=== PATIENT | female | born 1945 | race Caucasian/White ===

== ENCOUNTER 2023-09-12 08:28 | Outpatient (OUT) | payer MEDICARE, SELFPAY ==
[2023-09-12 08:55] LABS: Basophils Absolute Auto 0.1 10^3/uL (0.0-0.1); Basophils Percent Auto 1.1 % (0.2-2.0); Eosinophils Absolute Auto 0.1 10^3/uL (0.0-0.7); Eosinophils Percent Auto 2.6 % (0.9-7.0); Hematocrit 39.8 % (36.0-48.0); Lymphocytes Absolute Auto 1.3 10^3/uL (1.2-3.8); Lymphocytes Percent Auto 27.9 % (20.5-60.0); Mean Corpuscular HGB Conc 32.7 g/dL (29.9-35.2); Mean Corpuscular Hemoglobin 30.5 pg (26.7-34.0); Mean Corpuscular Volume 93.4 fL (81.0-99.0); Mean Platelet Volume 10.9 fL (9.5-13.5); Monocytes Absolute Auto 0.4 10^3/uL (0.3-0.8); Monocytes Percent Auto 8.6 % (1.7-12.0); Neutrophils Absolute Auto 2.8 10^3/uL (1.4-6.5); Neutrophils Percent Auto 59.8 % (43.0-75.0); Platelet Count 176 10^3/uL (150-450); Red Blood Count 4.26 10^6/uL (4.20-5.40); Red Cell Distribution Width 13.7 % (11.0-15.0); White Blood Count 4.7 10^3/uL (4.0-11.0)
[2023-09-12 10:41] LABS: Estimated Average Glucose 111 mg/dL; Glycohemoglobin A1C 5.5 % (4.5-6.2)
[2023-09-12 10:47] LABS: Free T4 0.99 ng/dL (0.76-1.46)
[2023-09-12 12:50] LABS: Alanine Aminotransferase 20 U/L (14-59); Albumin Level 3.9 g/dL (3.4-5.0); Alkaline Phosphatase 58 U/L (46-116); Anion Gap 14.6; Aspartate Amino Transferase 23 U/L (15-37); BUN Creatinine Ratio 14.5; Bilirubin Direct 0.1 mg/dL (0.0-0.2); Bilirubin Total 0.8 mg/dL (0.2-1.0); Carbon Dioxide 25.3 mmol/L (21.0-32.0); Chloride 105 mmol/L (98-107); Estimated GFR (African America >60 (>=60); Estimated GFR (Non-African Ame >60 (>=60); Free T3 2.65 pg/mL (2.18-3.98); Glucose 96 mg/dL (74-106); Potassium 3.9 mmol/L (3.5-5.1); Sodium 141 mmol/L (136-145); Total Protein 7.9 g/dL (6.4-8.2)
== END 2023-09-12 08:29 | disposition home or self-care (01) ==
LOC: LAB 08:32
PROVIDERS: PCP Family Medicine; Visit Provider Family Medicine
DX: Z79.899 Other long term (current) drug therapy (principal); R79.89 Other specified abnormal findings of blood chemistry; R73.03 Prediabetes
CPT/HCPCS: 36415; 80048; 80076; 83036; 84439; 84443; 84481; 85025

== ENCOUNTER 2024-09-17 08:28 | Outpatient (OUT) | payer MEDICARE, SELFPAY ==
--- OUTSIDE RECORDS SUMMARY | 2024-09-17 08:49 | XMS_ITS | CCD ---
Author Organization [facility] Care Team Providers Care [employer]ating [employer]or Name Role Phone Jb Escudero Unavailable DR NOELLE MONTERO Admitting Unavailable WINSTON, DR NOELLE Kevin Attending Unavailable WINSTON, DR NOELLE Kevin Primary Care Unavailable WINSTON, DR NOELLE Kevin Admitting Unavailable WINSTON, DR NOELLE Kevin Attending Unavailable WINSTON, DR NOELLE Kevin Primary Care Unavailable WINSTON, DR NOELLE Kevin Consulting Unavailable Noelle Montero MD Primary Care Provider [phone] Allergies Allergy Classification Reported Allergen(s) Allergy Type Date of Onset Reaction(s) Facility (4 sources) Sulf-10 Drug allergy Unknown [facility] Other (2 sources) Sulfonamides (Antibiotic) Drug allergy (disorder) 6 [facility] (3 sources) Sulfonamides (Antibiotic) Propensity to adverse reactions 4 [facility] Healthcare Medications Current Medications Medication Drug Class(es) Dates Sig (Normalized) Sig (Original) acetaminophen 325 mg / HYDROcodone bitartrate 5 mg oral tablet (4 sources) Opioid Agonist take 1 tablet by mouth every six hours HYDROcodone-Acetam inophen 5-325 MG 1 tablet as needed Orally every 6 hrs Active Iron (4 sources) Iron Active lisinopril 20 mg oral tablet (7 sources) Angiotensin Converting Enzyme Inhibitor Start: 07-29-2024 take 1 tablet by mouth once daily lisinopril 20 MG tablet Indications: Essential (primary) hypertension (CMS/HCC) TAKE 1 TABLET BY MOUTH DAILY 90 tablet 3 07/29/2024 Active take 1 tablet by fercho th every twenty-four hours Lisinopril 20 MG 1 tablet Orally Once a day Active Multivitamins (4 sources) Multivitamins Ac tive nitrofurantoin, macrocrystals 25 mg / nitrofurantoin, monohydrate 75 mg oral capsule (4 sources) Nitrofuran Antibacterial Start: 02-28-20 16 take 1 capsule by mouth every twelve hours Macrobid 100 mg 1 capsule with food Orally every 12 hrs for 7 day(s) February, Active Completed/Discontinued Medications Medication Drug Class(es) Dates Sig (Normalized) Sig (Original) cefuroxime 500 mg oral tablet (4 sources) Cephalosporin Antibacterial Start: 01-14-2015 take 1 tablet by mouth twice daily Ceftin 500 mg 1 tablet Orally Twice a day for 10 day(s) Jan, Not-Taking codeine phosphate 2 mg/ml / guaiFENesin 20 mg/ml oral solution (4 sources) Opioid Agonist Start: 01-14-2015 take 10 mL by mouth every four to six hours as needed guaiFENesin AC 100-10 MG/5ML 10 ml as needed Orally every 4-6 hrs Jan, Not-Taking Problems Active Problems Problem Classification Problem Date Documented Da te Episodic/Chronic Diabetes mellitus without complication (5 sources) Prediabetes; Translations: [Prediabetes] Onset: 03-13-2024 03-13-2024 Episodic Disorders of lipid metabolism (6 sources) Hyperlipidemia, unspecified; Translations: [Dyslipidemia] Onset: 02-16-2023 03-13-2024 Chronic Essential hypertension (9 sources) Essential (primary) hypertension; Translations: [Benign essential hypertension] Onset: 02-12-2023 Chronic Other aftercare (1 source) Other jail (current) drug therapy; Translations: [OTH GLOBAL CTO CURRENT DRUG THERAPY] Onset: 02-16-2023 Episodic Other aftercare (4 sources) Long-term current use of drug therapy; Translations: [Other jail (current) drug therapy] Onset: 09-16-2024 09-16-2024 Episodic Other screening for suspected conditions (not mental disorders or infectious disease) (4 sources) Thyroid hormone tests abnormal; Translations: [Other specified abnormal findings of blood chemistry] Onset: 09-16-2024 09-16-2024 Episodic Other upper respiratory disease (5 sources) Allergic rhinitis due to pollen; Translations: [Allergic rhinitis due to pollen] Onset: 03-13-2024 03-13-2024 Chronic Thyroid disorders (5 sources) Thyroid nodule; Translations: [Nontoxic single thyroid nodule] Onset: 03-13-2024 03-13-2024 Chronic Past or Other Problems Problem Classification Problem Date Documented Date Episodic/Chronic Cancer of breast (3 sources) History of malignant neoplasm of breast; Translations: [Personal history of malignant neoplasm of breast] Onset: 03-13-2024 03-13-2024 Episodic Fracture of upper limb (4 sources) Other fracture of shaft of right humerus, initial encounter for closed fracture; Translations: [Other fracture of shaft of right humerus, subsequent encounter for fracture with routine healing] Onset: 10-04-2021 Resolved: 01-10-2022 Episodic Other connective tissue disease (4 sources) Weakness of face muscles; Translations: [Facial weakness] Episodic Other upper respiratory infections (4 sources) Streptococcal sore throat; Translations: [Strep pharyngitis] Episodic Results Test Name Value Interpretation Reference Range Facil ity CBC AUTO DIFFon 02-12-2023 BASO # 0.1 103/ul Normal 0.0-0.1 [facility] Comment on above: Performed By: #### C BC #### [facility] [address] [place] [address] Dr. Didier Ty Basophils/100 WBC (Bld) 1.0 % Normal 0.2-2.0 [facility] Comment on above: Performed By: #### C BC #### [facility] [address] [place] [address] Dr. Didier Ty EO # 0.2 103/ul Normal 0.0-0.7 [facility] Comment on above: Performed By: #### C BC #### [facility] [address] [place] [address] Dr. Didier Ty Eosinophils/100 WBC (Bld) 3.5 % Normal 0.9-7.0 [facility] Comment on above: Performed By: #### C BC #### [facility] [address] [place] [address] Dr. Didier Ty Erythrocyte distribution width (RBC) [Ratio] 13.0 % Normal 11.0-15.0 [facility] Comment on above: Performed By: #### C BC #### [facility] [address] [place] [address] Dr. Didier Ty Hematocrit (Bld) [Volume fraction] 41.2 % Normal 36.0-48.0 [facility] Comment on above: Performed By: #### C BC #### [facility] [address] [place] [address] Dr. Didier Ty Hemoglobin (Bld) [Mass/Vol] 13.3 g/dL Normal 12.0-16.0 [facility] Comment on above: Performed By: #### C BC #### [facility] [address] [place] [address] Dr. Didier Ty IG # 0.01 10e3/ul Normal 0.00-0.03 [facility] Comment on above: Performed By: #### C BC #### [facility] [address] [place] [address] Dr. Didier Ty IG % 0.2 % Normal 0.0-0.5 [facility] Comment on above: Performed By: #### C BC #### [facility] [address] [place] [address] Dr. Didier Ty LYMPH # 1.4 103/ul Normal 1.2-3.8 [facility] Comment on above: Performed By: #### C BC #### [facility] [address] [place] [address] Dr. Didier Ty Lymphocytes/100 WBC (Bld) 27.3 % Normal 20.5-60.0 [facility] Comment on above: Performed By: #### C BC #### [facility] [address] [place] [address] Dr. Didier Ty MANUAL DIFF REQ NO Normal [facility] Comment on above: Performed By: #### C BC #### [facility] [address] [place] [address] Dr. Didier Ty MCH (RBC) [Entitic mass] 29.6 pg Normal 26.7-34.0 [facility] Comment on above: Performed By: #### C BC #### [facility] [address] [place] [address] Dr. Didier Ty MCHC (RBC) [Mass/Vol] 32.3 g/dL Normal 29.9-35.2 [facility] Comment on above: Performed By: #### C BC #### [facility] [address] [address] [address] Didier Ty MCV (RBC) [Entitic vol] 91.8 fL Normal 81.0-99.0 [facility] Comment on above: Performed By: #### C BC #### [facility] [address] [address] [address] Didier Ty MONO # 0.4 103/ul Normal 0.3-0.8 [facility] Comment on above: Performed By: #### C BC #### [facility] [address] [address] [address] Didier Ty Monocytes/100 WBC (Bld) 7.8 % Normal 1.7-12.0 [facility] Comment on above: Performed By: #### C BC #### [facility] [address] [place] [address] Dr. Didier Ty NEUT # 3.1 103/ul Normal 1.4-6.5 [facility] Comment on above: Performed By: #### C BC #### [facility] [address] [place] [address] Dr. Didier Ty Neutrophils/100 WBC (Bld) 60.2 % Normal 43.0-75.0 [facility] Comment on above: Performed By: #### C BC #### [facility] [address] [place] [address] Dr. Didier Ty Platelet mean volume (Bld) [Entitic vol] 10.5 fL Normal 9.5-13.5 [facility] Comment on above: Performed By: #### C BC #### [facility] [address] [address] [address] Didier Ty PLT 195 103/ul Normal 150-450 [facility] Comment on above: Performed By: #### C BC #### [facility] [address] [address] [address] Didier Ty RBC 4.49 106/ul Normal 4.20-5.40 [facility] Comment on above: Performed By: #### C BC #### [facility] [address] [address] [address] Didier Ty WBC 5.1 103/ul Normal 4.0-11.0 [facility] Comment on above: Performed By: #### C BC #### [facility] [address] [address] [address] Didier Ty LIPID PROFILEon 02-12-2023 CHOL-HDL RATIO NORM SEE BELOW Normal [facility] Comment on above: Result Comment: 3.3 - 4.4 LOW RISK 4.4 - 7.1 AVERAGE RISK 7.1 - 11.0 MODERATE RISK >11.0 HIGH RISK Performed By: #### L IPID, LIVER, BMP #### [facility] [address] [place] [address] Dr. Didier Ty Cholesterol [Mass/Vol] 235 mg/dL Critically high <=200 [facility] Comment on above: Performed By: #### L IPID, LIVER, BMP #### [facility] [address] [address] [address] Didier Ty Cholesterol in HDL [Mass/Vol] 54 mg/dL Normal 40-60 [facility] Comment on above: Performed By: #### L IPID, LIVER, BMP #### [facility] [address] [address] [address] Didier Ty Cholesterol in LDL [Mass/Vol] 162.2 mg/dL Normal [facility] Comment on above: Performed By: #### L IPID, LIVER, BMP #### [facility] [address] [address] [address] Didier Ty Cholesterol.total/C holesterol in HDL [Mass ratio] 4.4 {ratio} Normal [facility] Comment on above: Performed By: #### L IPID, LIVER, BMP #### [facility] [address] [place] [address] Dr. Didier Ty HDL NORMAL > or = 60 mg/dl - LOW CARDIOVASCULAR RISK <40 mg/dl - HIGH CARDIOVASCULAR RISK Normal [facility] Comment on above: Performed By: #### L IPID, LIVER, BMP #### [facility] [address] [address] [address] Didier Ty LDL CALC NORMAL SEE BELOW Normal [facility] Comment on above: Result Comment: <100 mg/dl OPTIMAL 100 - 129 mg/dl NEAR OR ABOVE OPTIMAL 130 - 159 mg/dl BORDERLINE HIGH 160 - 189 mg/dl HIGH >190 mg/dl VERY HIGH Performed By: #### L IPID, LIVER, BMP #### [facility] [address] [address] [address] Didier Ty Triglyceride [Mass/Vol] 94 mg/dL Normal <=150 [facility] Comment on above: Performed By: #### L IPID, LIVER, BMP #### [facility] [address] [address] [address] Didier Ty VLDL CALC 18.8 mg/dL Normal [facility] Comment on above: Performed By: #### L IPID, LIVER, BMP #### [facility] [address] [place] [address] Dr. Didier Ty LIVER PROFILEon 02-12-2023 Albumin [Mass/Vol] 3.6 g/dL Normal 3.4-5.0 [facility] Comment on above: Performed By: #### L IPID, LIVER, BMP #### [facility] [address] [place] [address] Dr. Didier Ty Albumin/Globulin [Mass ratio] 0.8 {ratio} Normal [facility] Comment on above: Performed By: #### L IPID, LIVER, BMP #### [facility] [address] [address] [address] Didier Ty ALP [Catalytic activity/Vol] 60 U/L Normal 46-116 [facility] Comment on above: Performed By: #### L IPID, LIVER, BMP #### [facility] [address] [address] [address] Didier Ty ALT [Catalytic activity/Vol] 25 U/L Normal 14-59 [facility] Comment on above: Performed By: #### L IPID, LIVER, BMP #### [facility] [address] [address] [address] Didier Ty AST [Catalytic activity/Vol] 19 U/L Normal 15-37 [facility] Comment on above: Performed By: #### L IPID, LIVER, BMP #### [facility] [address] [place] [address] Dr. Didier Ty BILI, CONJUGATED 0.1 mg/dL Normal 0.0-0.2 [facility] Comment on above: Performed By: #### L IPID, LIVER, BMP #### [facility] [address] [place] [address] Dr. Didier Ty Bilirubin [Mass/Vol] 0.6 mg/dL Normal 0.2-1.0 [facility] Comment on above: Performed By: #### L IPID, LIVER, BMP #### [facility] [address] [place] [address] Dr. Didier Ty Globulin (S) [Mass/Vol] 4.3 g/dL Normal [facility] Comment on above: Performed By: #### L IPID, LIVER, BMP #### [facility] [address] [place] [address] Dr. Didier Ty Protein [Mass/Vol] 7.9 g/dL Normal 6.4-8.2 [facility] Comment on above: Performed By: #### L IPID, LIVER, BMP #### [facility] [address] [place] [address] Dr. Didier Ty PROF CHEM 8 (BAS METB)on Anion gap [Moles/Vol] 13.3 mmol/L Normal [facility] Comment on above: Performed By: #### L IPID, LIVER, BMP #### [facility] [address] [place] [address] Dr. Didier Ty Calcium [Mass/Vol] 9.1 mg/dL Normal 8.5-10.1 [facility] Comment on above: Performed By: #### L IPID, LIVER, BMP #### [facility] [address] [place] [address] Dr. Didier Ty Chloride [Moles/Vol] 105 mmol/L Normal 98-107 [facility] Comment on above: Performed By: #### L IPID, LIVER, BMP #### [facility] [address] [address] [address] Didier Ty CO2 [Moles/Vol] 26.6 mmol/L Normal 21.0-32.0 [facility] Comment on above: Performed By: #### L IPID, LIVER, BMP #### [facility] [address] [address] [address] Didier Ty Creatinine [Mass/Vol] 0.74 mg/dL Normal 0.55-1.02 [facility] Comment on above: Performed By: #### L IPID, LIVER, BMP #### [facility] [address] [address] [address] Didier Ty EGFR-AF WALLISIAN >60 Normal >=60 [facility] Comment on above: Performed By: #### L IPID, LIVER, BMP #### [facility] [address] [address] [address] Didier Ty EGFR-NON AF WALLISIAN >60 Normal >=60 [facility] Comment on above: Performed By: #### L IPID, LIVER, BMP #### [facility] [address] [address] [address] Didier Ty Glucose [Mass/Vol] 107 mg/dL Critically high 74-106 [facility] Comment on above: Performed By: #### L IPID, LIVER, BMP #### [facility] [address] [address] [address] Didier Ty Potassium [Moles/Vol] 3.9 mmol/L Normal 3.5-5.1 [facility] Comment on above: Performed By: #### L IPID, LIVER, BMP #### [facility] [address] [address] [address] Didier Ty Sodium [Moles/Vol] 141 mmol/L Normal 136-145 [facility] Comment on above: Performed By: #### L IPID, LIVER, BMP #### [facility] [address] [address] [address] Didier Ty Urea nitrogen [Mass/Vol] 15.0 mg/dL Normal 7.0-18.0 [facility] Comment on above: Performed By: #### L IPID, LIVER, BMP #### [facility] [address] [address] [address] Didier Ty Urea nitrogen/Creatinine [Mass ratio] 20.3 mg/mg Normal [facility] Comment on above: Performed By: #### L IPID, LIVER, BMP #### [facility] [id number] Didier Ty XR humerus RT*on 10-11-2021 XR humerus RT* [facility] [address] [place] [address] XRay Report Signed Patient: Meeta Funez MR#: [id number] 0 : 1945 Acct:[id number] Age/Sex: 76 / F ADM Date: 10/11/21 Loc: [facility] Room: Type: [facility] Attending Dr: Jb Escudero MD Ordering Provider: Jb Escudero MD Date of Service: 10/11/21 XR/XR humerus RT*: Other fracture of shaft of right humerus, subsequent encount Copies to: Jb Escudero MD 2 viewsRIGHT humerus plain film COMPARISON:None HISTORY:Status post RIGHT humeral shaft fracture Comminuted angulated proximal humeral shaft fracture identified. No dislocation. XR/XR humerus RT* IMPRESSION:Proximal humerus fracture. Impression dictated by: Isaias Gardner M.D.10/11/2021 12:47 PM Dictation Location: [place] [address] Transcribed By: [facility] 10/11/21 1247 Dictated By: Isaias Gardner DO 10/11/21 1240 Signed By: 10/11/[address] [facility] Vital Signs Date Time Vital Sign Value Performing Clinician Facility 09-16-2024 [id number] Body height 165.1 cm Noelle Montero MD Work Phone: [facility] 09-16-2024 09:28-0500 Body mass index (BMI) [Ratio] 25.29 kg/m2 Noelle Montero MD Work Phone: [facility] 09-16-2024 09:28-0500 Body temperature 97.5 [degF] Noelle Montero MD Work Phone: [facility] 09-16-2024 09:28-0500 Body weight 68.95 kg Noelle Montero MD Work Phone: [facility] 09-16-2024 09:28-0500 Diastolic blood pressure 60 mm[Hg] Noelle Montero MD Work Phone: [facility] 09-16-2024 09:28-0500 Heart rate 77 /min Noelle Montero MD Work Phone: [facility] 09-16-2024 09:28-0500 Respiratory rate 20 /min Noelle Montero MD Work Phone: [facility] 09-16-2024 09:28-0500 SaO2% (BldA) [Mass fraction] 98 % Noelle Montero MD Work Phone: [facility] 09-16-2024 09:28-0500 Systolic blood pressure 134 mm[Hg] Noelle Montero MD Work Phone: [facility] 10-11-2021 10:30-0500 Body height 165.1 cm Jb Olexa Other [facility] Other 10-11-2021 10:30-0500 Body mass index (BMI) [Ratio] 25.46 kg/m2 Jb Olexa Other [facility] Other 10-11-2021 10:30-0500 Body weight 69.4 kg Jb Olexa Other [facility] Other 10-04-2021 14:00-0500 Body height 165.1 cm Jb Olexa Other [facility] Other 10-04-2021 14:00-0500 Body mass index (BMI) [Ratio] 25.62 kg/m2 Jb Olexa Other [facility] Other 10-04-2021 14:00-0500 Body weight 69.85 kg Jb Olexa Other [facility] Other Encounters Encounter Date Encounter Type Care Provider Facility Start: 09-16-2024 End: 09-16-2024 Bambocedric flowsheet Noelle Montero MD Work Phone: [facility] Start: 09-16-2024 End: 09-16-2024 Bamboo flowsheet Noelle Montero MD Work Phone: [facility] Start: 09-16-2024 End: 09-16-2024 Office outpatient visit 25 minutes Noelle Montero MD Work Phone: [facility] Comment on above: Essential hypertensi on, benign (CMS/HCC) (Primary Dx); Dyslipidemia (CMS/HCC); Pre-diabetes; Seasonal allergic rhinitis due to pollen; Encounter for long-term (current) use of medications; Abnormal TSH; Thyroid nodule (CMS/HCC) Start: 02-12-2023 End: 02-13-[address] NOELLE MONTERO Facility:[facility] Start: 12-14-[address] NOELLE MONTERO [facility] ity:[facility] Start: 01-10-2022 End: 01-10-2022 ambulatory Jb Olexa Other [facility] Other Start: 01-10-2022 Office outpatient vi sit 15 minutes Jb Olexa [facility] Start: 11-15-2021 End: 11-15-2021 ambulatory Jb Olexa Other [facility] Other Start: 11-15-2021 Postop follow up vis it related to original px Jb Olexa [facility] Start: 10-11-2021 End: 10-11-2021 ambulatory Jb Olexa Other [facility] Other Start: 10-11-2021 Postop follow up vis it related to original px Jb Escudero [facility] Start: 10-04-2021 End: 10-04-2021 ambulatory Jb Escudero Other [facility] Other Start: 10-04-2021 FQ visit new patient Jb Escudero [facility] Plan of Treatment Date Care Activity Detail Author Start: 12-15-2024 End: 12-15-2024 Patient encounter procedure 12/15/2024 11:00 AM EST Office Visit [facility] [address] [place] [id number] Noelle Montero MD [address] [place] [phone] [facility] Start: 09-16-2024 End: 09-16-2025 Basic metabolic 1998 panel - Serum or Plasma Basic metabolic panel Lab Routine Essential hypertension, benign (CMS/HCC) Expected: 09/16/2024 (Approximate), Expires: 09/16/2025 [facility] Comment on above: Expected: 09/16/2024 (Approximate), Expires: 09/16/2025 Start: 09-16-2024 End: 09-16-2025 CBC W Auto Differential panel - Blood CBC and differential Lab Routine Encounter for long-term (current) use of medications Expected: 09/16/2024 (Approximate), Expires: 09/16/2025 [facility] Comment on above: Expected: 09/16/2024 (Approximate), Expires: 09/16/2025 Start: 09-16-2024 End: 09-16-2025 Hemoglobin A1c/Hemoglobin.total in Blood Hemoglobin A1c Lab Routine Pre-diabetes Expected: 09/16/2024 (Approximate), Expires: 09/16/2025 [facility] Work Phone: Comment on above: Expected: 09/16/2024 (Approximate), Expires: 09/16/2025 Start: 09-16-2024 End: 09-16-2025 Hepatic function 2000 panel - Serum or Plasma Hepatic function panel Lab Routine Encounter for long-term (current) use of medications Expected: 09/16/2024 (Approximate), Expires: 09/16/2025 [facility] Comment on above: Expected: 09/16/2024 (Approximate), Expires: 09/16/2025 Start: 09-16-2024 End: 09-16-2025 Lipid 1996 panel - Serum or Plasma Lipid panel Lab Routine Dyslipidemia (CMS/HCC) Expected: 09/16/2024 (Approximate), Expires: 09/16/2025 [facility] Comment on above: Expected: 09/16/2024 (Approximate), Expires: 09/16/2025 Start: 09-16-2024 End: 09-16-2025 Thyrotropin [Units/volume] in Serum or Plasma TSH Lab Routine Abnormal TSH Expected: 09/16/2024 (Approximate), Expires: 09/16/2025 [facility] Comment on above: Expected: 09/16/2024 (Approximate), Expires: 09/16/2025 Start: 09-16-2024 End: 09-16-2025 Thyroxine (T4) free [Mass/volume] in Serum or Plasma T4, free Lab Routine Abnormal TSH Expected: 09/16/2024 (Approximate), Expires: 09/16/2025 [facility] Comment on above: Expected: 09/16/2024 (Approximate), Expires: 09/16/2025 Start: 09-16-2024 End: 09-16-2025 US Thyroid gland US thyroid Imaging Routine Thyroid nodule (CMS/HCC) Expected: 09/16/2024, Expires: 09/16/2025 [facility] Comment on above: Expected: 09/16/2024 , Expires: 09/16/2025 Start: 09-16-2024 End: 09-16-2024 Patient encounter procedure 09/16/2024 9:15 AM EST Office Visit [facility] [address] [place] [address] Noelle Montero MD [address] [place] [address] Arrived [facility] Comment on above: Arrived Start: 06-15-2024 Influenza vaccination Influenza Vacc ine (#1) [facility] Start: 2008 Pneumococcal Vaccine : 65+ Years (1 of 1 - PCV) Pneumococcal Vaccine: 65+ Years (1 of 1 - PCV) [facility] Start: 1945 Medicare Annual Wellness (AWV) Medicare Annual Wellness (AWV) [facility] Immunizations Immunization Date Immunization Notes Care Provider Fa nirmal 07-29-2024 influenza virus vacc ine, unspecified formulation Noelle Montero MD Work Phone: [facility] Payers Date Payer Category Payer Medicare (Managed Care) [facility] MED[facility] [id number] 1961 Medicare [id number] 1961 Self-pay 1945 Unknown [id number] 1945 Unknown [id number] Medicare [id number] Unknown [id number] Social History Date Type Detail Facility Start: 03-13-2024 End: 09-16-2024 Sex Assigned At [facility] Other Start: 03-13-2024 Tobacco smoking status NHIS Never smoked tobacco [facility] Start: 03-13-2024 Tobacco use and exposure Smokeless tobacco non-user [facility] Start: 03-13-2024 End: 09-16-2024 History of Social function [facility] Start: 1945 Sex assigned at Not on file N [facility] History of Present illness Narrative 09-16-2024 Noelle Montero MD - 09/16/2024 10:03 AM Adriano Montero MD - 09/16/2024 10:03 AM Adriano Montero MD - 09/16/2024 10:03 AM Adriano Montero MD - 09/16/2024 10:03 AM EST Note Date & Type Note Facility 09-16-2024 History of Presen t illness Narrative Associated Problem(s): Thyroid nodule (CMS/HCC) Repeat US. Associated Problem(s): Seasonal allergic rhinitis due to pollen Symptoms controlled with medication and continue. Associated Problem(s): Essential hypertension, benign (CMS/HCC) BP controlled and monitor PRN. Associated Problem(s): Abnormal TSH No signs of abnormal thyroid and check labs. Images from the original note were not included. Subjective Patient ID: Meeta Funez is a 79 y.o. female who presents for Follow-up (6 m). Follow up HTN, allergies, and thyroid nodule. Patient feels well today. Checking BP PRN and typically controlled. BP normal today. Taking medication daily and tolerating without side effects. Allergies controlled with medication. No congestion or rhinorrhea. No PALMER or sinus pressure. Ears not plugged or popping. Previously to endo for nodule but not for years. No labs or US for over a year. Denies signs of low thyroid such as fatigue, change in nails, or skin. Review of Systems Respiratory: Negative for cough, shortness of breath and wheezing. Cardiovascular: Negative for chest pain and palpitations. Gastrointestinal: Negative for abdominal pain, diarrhea, nausea and vomiting. Genitourinary: Negative for dysuria. Objective Physical Exam Constitutional: General: She is not in acute distress. Appearance: Normal appearance. HENT: Head: Normocephalic. Right Ear: Tympanic membrane normal. Left Ear: Tympanic membrane normal. Eyes: Extraocular Movements: Extraocular movements intact. Pupils: Pupils are equal, round, and reactive to light. Cardiovascular: Rate and Rhythm: Normal rate and regular rhythm. Heart sounds: No murmur heard. No friction rub. No gallop. Pulmonary: Effort: Pulmonary effort is normal. Breath sounds: Normal breath sounds. No wheezing, rhonchi or rales. Abdominal: General: Bowel sounds are normal. There is no distension. Palpations: Abdomen is soft. Tenderness: There is no abdominal tenderness. There is no guarding or rebound. Musculoskeletal: Cervical back: Neck supple. Right lower leg: No edema. Left lower leg: No edema. Neurological: Mental Status: She is alert. Assessment/Plan Problem List Items Addressed This Visit Essential hypertension, benign (CMS/HCC) - Primary BP controlled and monitor PRN. Relevant Orders Basic metabolic panel Seasonal allergic rhinitis due to pollen Symptoms controlled with medication and continue. Dyslipidemia (CMS/HCC) Relevant Orders Lipid panel Pre-diabetes Relevant Orders Hemoglobin A1c Thyroid nodule (CMS/HCC) Repeat US. Relevant Orders US thyroid Abnormal TSH No signs of abnormal thyroid and check labs. Relevant Orders TSH T4, free Encounter for long-term (current) use of medications Relevant Orders CBC and differential Hepatic function panel documented in this encounter [facility] Evaluation note 01-10-2022 Note Date & Type Note Facility 01-10-2022 Evaluation note Encounter Date Diagnosis Assessment Notes Dec, Other fracture of shaft of right humerus, subsequent encounter for fracture with routine healing (ICD-10 - S42.391D) Radiographs reviewed with patient. She is progressing well from injury. Instructed on gentle motion and strengthening exercises jail. 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 Progress activity as tolerated. Call with questions/concer ns. [facility] Other Evaluation note 11-15-2021 Note Date & Type Note Facility 11-15-2021 Evaluation note Encounter Date Diagnosis Assessment Notes Nov, Other fracture of shaft of right humerus, subsequent encounter for fracture with routine healing (ICD-10 - S42.391D) Radiographs reviewed with patient as healing fracture. Instructed on progression of motion and strengthening exercises including table and wall walks, these were demonstrated. Formal therapy order provided. [facility] Other Evaluation note 10-11-2021 Note Date & Type Note Facility 10-11-2021 Evaluation note Encounter Date Diagnosis Assessment Notes Sep, Other fracture of shaft of right humerus, subsequent encounter for fracture with routine healing (ICD-10 - S42.391D) Patient is progressing well from this injury. We discussed the importance of continuing to work on range of motion [facility] Other Evaluation note 10-04-2021 Note Date & Type Note Facility 10-04-2021 Evaluation note Encounter Date Diagnosis Assessment Notes Sep, Other closed fracture of shaft of right humerus, initial encounter (ICD-10 - S42.391A) Radiographs reviewed with patient and company as proximal humeral shaft fracture. We will treat this non-operatively . We discussed the importance of and demonstrated active elbow and wrist motion exercise as well as passive pendulum shoulder motion. Instructed on specifically allowing the arm to hang when possible to let gravity aid the fracture with good alignment. We discussed that this fracture will hopefully show evidence of healing by 6 weeks post injury. Discussed that this will take many months to recover and there is a high potential for permanent loss of shoulder motion. Discussed the use of ice and heat for pain relief. We will monitor this fracture closely for any sign of further displacement that would indicate the need for surgery. COMPLEX FX, ALIGNMENT IS REASONABLE. WILL TRY NON OP AND SEE HOW SHE DOES. CAN CONISDER FIXATION IF ALINGMENT WORSENS OR PAIN UNACCEPTABLE. [facility] Other Evaluation note Note Date & Type Note Facility Evaluation note Diagnosis Essential hypertension, benign (CMS/HCC)- Primary Essential hypertension, benign Seasonal allergic rhinitis due to pollen Essential hypertension, benign (CMS/HCC)- Primary Essential hypertension, benign Dyslipidemia (CMS/HCC) Other and unspecified hyperlipidemia Pre-diabetes Other abnormal glucose Seasonal allergic rhinitis due to pollen Encounter for long-term (current) use of medications Encounter for long-term (current) use of other medications Abnormal TSH Thyroid nodule (CMS/HCC) Nontoxic uninodular goiter documented in this encounter [facility] History general Narrative - Reported Note Date & Type Note Facility History general Narrative - Reported Type Medical History HTN (hypertension) Medical History Breast cancer Surgical History cholecystectomy Surgical History biopsy Hospitalization History left side weakness [facility] Other Summary Purpose Family History No Family History Records FoundNo Family History Records Found Advance Directives No Advanced Directives Records FoundNo Advanced Directives Records Found Additional Source Comments INFORMATION SOURCE (unrecogn ized section and content) DATE CREATED AUTHOR 10/19/2021 [facility] DATE CREATED AUTHOR AUTHOR'S ORGANIZ ATION 02/17/2023 [facility] REASON FOR VISIT (unrecogniz ed section and content) Reason Comments Follow-up 6 m Care Teams (unrecognized sec tion and content) [employer] Relationship Specialty Start Date End Date Noelle Montero MD [address] [place] [id number] PCP - General Family Medicine 03/13/24 [employer] Relationship Specialty Start Date End Date Noelle Montero MD [address] [place] [id number] PCP - General Family Medicine 03/13/24 FOR RECORDS PERTAINING TO PATIENTS WHO ARE OR HAVE BEEN ENROLLED IN A CHEMICAL DEPENDENCY/SUBSTANCEABUSE PROGRAM, SOME INFORMATION MAY BE OMITTED. This clinical summary was aggregated from multiple sources. Caution should be exercised in using it in the provision of clinical care. This summary normalizes information from multiple sources, and as a consequence, information in this document may materially change the coding, format and clinical context of patient data. In addition, data may be omitted in some cases. CLINICAL DECISIONS SHOULD BE BASED ON THE PRIMARY CLINICAL RECORDS. [facility]. provides no warranty or guarantee of the accuracy or completeness of information in this document.
[2024-09-17 09:10] LABS: Basophils Absolute Auto 0.1 10^3/uL (0.0-0.1); Eosinophils Absolute Auto 0.2 10^3/uL (0.0-0.7); Eosinophils Percent Auto 2.9 % (0.9-7.0); Hematocrit 37.8 % (36.0-48.0); Hemoglobin 12.3 g/dL (12.0-16.0); Immature Granulocytes Abs Auto 0.01 10^3/uL (0.00-0.03); Immature Granulocytes Pct Auto 0.2 % (0.0-0.5); Lymphocytes Absolute Auto 1.4 10^3/uL (1.2-3.8); Lymphocytes Percent Auto 27.6 % (20.5-60.0); Mean Corpuscular HGB Conc 32.5 g/dL (29.9-35.2); Mean Corpuscular Hemoglobin 30.1 pg (26.7-34.0); Mean Corpuscular Volume 92.6 fL (81.0-99.0); Mean Platelet Volume 10.4 fL (9.5-13.5); Monocytes Absolute Auto 0.5 10^3/uL (0.3-0.8); Monocytes Percent Auto 9.5 % (1.7-12.0); Neutrophils Percent Auto 58.8 % (43.0-75.0); Platelet Count 203 10^3/uL (150-450); Red Blood Count 4.08 10^6/uL (4.20-5.40); White Blood Count 5.2 10^3/uL (4.0-11.0)
[2024-09-17 09:31] LABS: Estimated Average Glucose 111 mg/dL; Glycohemoglobin A1C 5.5 % (4.5-6.2)
[2024-09-17 09:44] LABS: Alanine Aminotransferase 23 U/L (14-59); Albumin Globulin Ratio 0.9; Albumin Level 3.3 g/dL (3.4-5.0); Alkaline Phosphatase 55 U/L (46-116); Anion Gap 11.4; Aspartate Amino Transferase 18 U/L (15-37); BUN Creatinine Ratio 21.9; Bilirubin Direct 0.2 mg/dL (0.0-0.2); Bilirubin Total 0.9 mg/dL (0.2-1.0); Calcium 8.5 mg/dL (8.5-10.1); Carbon Dioxide 27.6 mmol/L (21.0-32.0); Chloride 108 mmol/L (98-107); Chol HDL Ratio 3.7; Cholesterol 233 mg/dL (<=200); Estimated GFR (African America >60 (>=60 mL/min/1.73m^2); Estimated GFR (Non-African Ame >60 (>=60 mL/min/1.73m^2); Globulin 3.5 g/dL; Glucose 88 mg/dL (74-106); HDL Cholesterol 63 mg/dL (40-60); Sodium 143 mmol/L (136-145); Thyroid Stimulating Hormone 1.041 uIU/mL (0.358-3.740); Total Protein 6.8 g/dL (6.4-8.2); Triglycerides 70 mg/dL (<=150)
[2024-09-17 09:59] LABS: Free T4 0.89 ng/dL (0.76-1.46)
== END 2024-09-17 08:29 | disposition home or self-care (01) ==
LOC: LAB 08:32
PROVIDERS: PCP Family Medicine; Visit Provider Family Medicine
DX: E78.5 Hyperlipidemia, unspecified (principal); I10 Essential (primary) hypertension; R73.03 Prediabetes; Z79.899 Other long term (current) drug therapy; R79.89 Other specified abnormal findings of blood chemistry
CPT/HCPCS: 36415; 80048; 80061; 80076; 83036; 84439; 84443; 85025

== ENCOUNTER 2025-04-01 10:45 | Outpatient (OUT) | payer MEDICARE, SELFPAY ==
--- NOTE | 2025-04-01 | MM_ITS ---
Patient Name: AVE SON MR#: [id number] : 1945 Exam Date: 04/01/2025 Ordering Doctor: DR NOELLE MONTERO . RADIOLOGY REPORT PROCEDURE: MM TOMOSYNTHESIS SCREENING BI COMPARISON: MG MAMM SCREEN KRISTI W CAD, 10/28/2018. MG MAMM SCREEN KRISTI W CAD, 08/23/2017. MG MAMM KRISTI SCRN W CAD DIG, 01/08/2015. MG MAMM KRISTI DIAG W CAD DIG, 08/13/2013. INDICATIONS: Screening Calculator Name NCI Breast Cancer Risk Assessment Tool 5 Year Breast Cancer Risk n/a% Lifetime Breast Cancer Risk n/a% Personal Breast Cancer Yes, HX OF RT BREAST CA AT AGE 48 Personal Ovarian Cancer No Treatments RT BREAST LUMPECTOMY/CHEMO Family Cancers Mother with breast cancer at age 40. LOCATION: [facility] BREAST COMPOSITION: There are scattered areas of fibroglandular density. FINDINGS: DIAGNOSTIC CATEGORY 1--NEGATIVE. RIGHT BREAST: No significant suspicious finding. LEFT BREAST: No significant suspicious finding. RECOMMENDATIONS: ROUTINE MAMMOGRAM AND CLINICAL EVALUATION IN 12 MONTHS. PLEASE NOTE: A NORMAL MAMMOGRAM DOES NOT EXCLUDE THE POSSIBILITY OF BREAST CANCER. A CLINICALLY SUSPICIOUS PALPABLE LUMP SHOULD BE BIOPSIED. Dictated by: Delvin Torrez DO on 04/01/2025 at 16:38 Approved by: Delvin Torrez DO on 04/01/2025 at 16:38
--- OUTSIDE RECORDS SUMMARY | 2025-04-01 11:05 | XMS_ITS | CCD ---
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 Name Role Phone Jb Escudero Unavailable DR CHETAN MONTERO Admitting Unavailable WINSTON, DR CHETAN Kevin Attending Unavailable WINSTON, DR CHETAN Kevin Primary Care Unavailable WINSTON, DR CHETAN Kevin Admitting Unavailable WINSTON, DR CHETAN Kevin Attending Unavailable WINSTON, DR CHETAN Kevin Primary Care Unavailable WINSTON, DR CHETAN Kevin Consulting Unavailable Chetan Montero MD Primary Care Provider [phone] CHETAN MONTERO Attending Unavailable WINSTON, CHETAN Attending Unavailable WINSTON, CHETAN Attending Unavailable Allergies Allergy Classification Reported Allergen(s) Allergy Type Date of Onset Reaction(s) Facility (4 sources) Sulf-10 Drug allergy Unknown [facility] Other (2 sources) Sulfonamides (Antibiotic) Drug allergy (disorder) 6 [facility] Repository (7 sources) Sulfonamides (Antibiotic) Propensity to adverse reactions 4 [facility] Healthcare Medications Current Medications Medication Drug Class(es) Dates Sig (Normalized) Sig (Original) acetaminophen 325 mg / HYDROcodone bitartrate 5 mg oral tablet (4 sources) Opioid Agonist take 1 tablet by mouth every six hours HYDROcodone-Acetam inophen 5-325 MG 1 tablet as needed Orally every 6 hrs Active Iron (4 sources) Iron Active lisinopril 20 mg oral tablet (11 sources) Angiotensin Converting Enzyme Inhibitor Start: 07-29-2024 [...] capsule (4 sources) Nitrofuran Antibacterial Start: 02-28-20 take 1 capsule by mouth every twelve [...] Classification Problem Date Documented Da te Episodic/Chronic Disorders of lipid metabolism (10 sources) Hyperlipidemia, unspecified; Translations: [Dyslipidemia] Onset: 02-16-2023 03-13-2024 Chronic Essential hypertension (15 sources) Essential (primary) hypertension; Translations: [Benign essential hypertension] Onset: 02-12-2023 Chronic Other aftercare (1 source) Other group home (current) drug therapy; Translations: [[employer]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] Onset: 02-16-2023 Episodic Other aftercare (8 sources) Long-term current use of drug therapy; Translations: [Other group home (current) drug therapy] Onset: 09-16-2024 09-16-2024 Episodic Other screening for suspected conditions (not mental disorders or infectious disease) (8 sources) Thyroid hormone tests abnormal; Translations: [Other specified abnormal findings of blood chemistry] Onset: 09-16-2024 09-16-2024 Episodic Other upper respiratory disease (9 sources) Allergic rhinitis due to pollen; Translations: [Allergic rhinitis due to pollen] Onset: 03-13-2024 03-13-2024 Chronic Thyroid disorders (9 sources) Thyroid nodule; Translations: [Nontoxic single thyroid nodule] Onset: 03-13-2024 03-13-2024 Chronic Past or Other Problems Problem Classification Problem Date Documented Date Episodic/Chronic Cancer of breast (7 sources) History of malignant neoplasm of breast; Translations: [Personal history of malignant neoplasm of breast] Onset: 03-13-2024 03-13-2024 Episodic Diabetes mellitus without complication (9 sources) Prediabetes; Translations: [Prediabetes] Onset: 03-13-2024 03-13-2024 Episodic Fracture of upper limb (4 sources) Other fracture of shaft of right humerus, initial encounter for closed fracture; Translations: [Other fracture of shaft of right humerus, subsequent encounter for fracture with routine healing] Onset: 10-04-2021 Resolved: 01-10-2022 Episodic Mood disorders (2 sources) Mood disorders Onset: 12-15-2024 12-15-2024 Other connective tissue disease (4 sources) Weakness of face muscles; Translations: [Facial weakness] Episodic Other upper respiratory infections (4 sources) Streptococcal sore throat; Translations: [Strep pharyngitis] Episodic Results Test Name Value Interpretation Reference Range Facility ALL CBC WITH AUTO DIFFon BASOPHILS ABSOLUTE AUTO 0.1 [facility] Basophils/100 WBC (Bld) 1 % 0.2 - 2.0 % [facility] Eosinophils/100 WBC (Bld) 2.9 % 0.9 - 7.0 % [facility] Erythrocyte distribution width (RBC) [Ratio] 14 % 11.0 - 15.0 % [facility] Hematocrit (Bld) [Volume fraction] 37.8 % 36.0 - 48.0 % [facility] ([facility] [Mass/Vol] 12.3 g/dL 12.0 - 16.0 g/dL [facility] IMMATURE GRANULOCYTES ABS AUTO 0.01 [facility] Immature granulocytes/100 WBC (Bld) 0.2 % 0.0 - 0.5 % [facility] Interpretation and review of laboratory results Abnormal [facility] LYMPHOCYTES ABSOLUTE AUTO 1.4 [facility] Lymphocytes/100 WBC (Bld) 27.6 % 20.5 - 60.0 % [facility] MCH (RBC) [Entitic mass] 30.1 pg 26.7 - 34.0 pg [facility] MCHC (RBC) [Mass/Vol] 32.5 g/dL 29.9 - 35.2 g/dL [facility] MCV (RBC) [Entitic vol] 92.6 fL 81.0 - 99.0 fL [facility] MONOCYTES ABSOLUTE AUTO 0.5 [facility] Monocytes/100 WBC (Bld) 9.5 % 1.7 - 12.0 % [facility] NEUTROPHILS ABSOLUTE AUTO 3 [facility] Neutrophils/100 WBC (Bld) 58.8 % 43.0 - 75.0 % [facility] Platelet mean volume (Bld) [Entitic vol] 10.4 fL 9.5 - 13.5 fL [facility] EO # 0.2 [facility] PLT 203 [facility] RBC 4.08 Low [facility] WBC 5.2 [facility] CBC AUTO DIFFon 02-12-2023 BASO # 0.1 103/ul Normal 0.0-0.1 [facility] Comment on above: Performed By: #### C BC #### [facility] [address] [address] [address] Didier Ty Basophils/100 WBC (Bld) 1.0 % Normal 0.2-2.0 [facility] Comment on above: Performed By: #### C BC #### [facility] [address] [address] [address] Didier Ty EO # 0.2 103/ul Normal 0.0-0.7 [facility] Comment on above: Performed By: #### C BC #### [facility] [address] [address] [address] Didier Ty Eosinophils/100 WBC (Bld) 3.5 % Normal 0.9-7.0 [facility] Comment on above: Performed By: #### C BC #### [facility] [address] [address] [address] Didier Ty Erythrocyte distribution width (RBC) [Ratio] 13.0 % Normal 11.0-15.0 [facility] Comment on above: Performed By: #### C BC #### [facility] [address] [address] [address] Didier Ty Hematocrit (Bld) [Volume fraction] 41.2 % Normal 36.0-48.0 [facility] Comment on above: Performed By: #### C BC #### [facility] [address] [place] [address] Dr. Didier Ty Hemoglobin (Bld) [Mass/Vol] 13.3 g/dL Normal 12.0-16.0 [facility] Comment on above: Performed By: #### C BC #### [facility] [address] [place] [address] Dr. Didier Ty IG # 0.01 10e3/ul Normal 0.00-0.03 [facility] Comment on above: Performed By: #### C BC #### [facility] [address] [place] [address] Dr. Didier Ty IG % 0.2 % Normal 0.0-0.5 [facility] Comment on above: Performed By: #### C BC #### [facility] [address] [place] [address] Dr. Didier Ty LYMPH # 1.4 103/ul Normal 1.2-3.8 [facility] Comment on above: Performed By: #### C BC #### [facility] [address] [place] [address] Dr. Didier Ty Lymphocytes/100 WBC (Bld) 27.3 % Normal 20.5-60.0 [facility] Comment on above: Performed By: #### C BC #### [facility] [address] [place] [address] Dr. Didier Ty MANUAL DIFF REQ NO Normal [facility] Comment on above: Performed By: #### C BC #### [facility] [address] [place] [address] Dr. Didier Ty MCH (RBC) [Entitic mass] 29.6 pg Normal 26.7-34.0 [facility] Comment on above: Performed By: #### C BC #### [facility] [address] [place] [address] Dr. Didier Ty MCHC (RBC) [Mass/Vol] 32.3 g/dL Normal 29.9-35.2 [facility] Comment on above: Performed By: #### C BC #### [facility] [id number] Didier Ty MCV (RBC) [Entitic vol] 91.8 fL Normal 81.0-99.0 [facility] Comment on above: Performed By: #### C BC #### [facility] [address] [place] [address] Dr. Didier Ty MONO # 0.4 103/ul Normal 0.3-0.8 [facility] Comment on above: Performed By: #### C BC #### [facility] [address] [place] [address] Dr. Didier Ty Monocytes/100 WBC (Bld) 7.8 % Normal 1.7-12.0 [facility] Comment on above: Performed By: #### C BC #### [facility] [address] [place] [address] Dr. Didier Ty NEUT # 3.1 103/ul Normal 1.4-6.5 [facility] Comment on above: Performed By: #### C BC #### [facility] [address] [place] [address] Dr. Didier Ty Neutrophils/100 WBC (Bld) 60.2 % Normal 43.0-75.0 [facility] Comment on above: Performed By: #### C BC #### [facility] [address] [place] [address] Dr. Didier Ty Platelet mean volume (Bld) [Entitic vol] 10.5 fL Normal 9.5-13.5 [facility] Comment on above: Performed By: #### C BC #### [facility] [address] [place] [address] Dr. Didier Ty PLT 195 103/ul Normal 150-450 [facility] Comment on above: Performed By: #### C BC #### [facility] [address] [place] [address] Dr. Didier Ty RBC 4.49 106/ul Normal 4.20-5.40 [facility] Comment on above: Performed By: #### C BC #### [facility] [address] [place] [address] Dr. Didier Ty WBC 5.1 103/ul Normal 4.0-11.0 [facility] Comment on above: Performed By: #### C BC #### [facility] [address] [address] [address] Didier Ty LIPID PROFILEon 02-12-2023 CHOL-HDL RATIO NORM SEE BELOW Normal [facility] Comment on above: Result Comment: 3.3 - 4.4 LOW RISK 4.4 - 7.1 AVERAGE RISK 7.1 - 11.0 MODERATE RISK >11.0 HIGH RISK Performed By: #### L IPID, LIVER, BMP #### [facility] [address] [address] [address] Didier Ty Cholesterol [Mass/Vol] 235 mg/dL Critically high <=200 [facility] Comment on above: Performed By: #### L IPID, LIVER, BMP #### [facility] [address] [address] [address] Didier Ty Cholesterol in HDL [Mass/Vol] 54 mg/dL Normal 40-60 [facility] Comment on above: Performed By: #### L IPID, LIVER, BMP #### [facility] [address] [address] [address] Didier Ty Cholesterol in LDL [Mass/Vol] 162.2 mg/dL Normal [facility] Comment on above: Performed By: #### L IPID, LIVER, BMP #### [facility] [address] [address] [address] Didier Ty Cholesterol.total/Ch olesterol in HDL [Mass ratio] 4.4 {ratio} Normal [facility] Comment on above: Performed By: #### L IPID, LIVER, BMP #### [facility] [address] [address] [address] Didier Ty HDL NORMAL > or = 60 mg/dl - LOW CARDIOVASCULAR RISK <40 mg/dl - HIGH CARDIOVASCULAR RISK Normal [facility] Comment on above: Performed By: #### L IPID, LIVER, BMP #### [facility] [address] [address] [address] Didier Ty LDL CALC NORMAL SEE BELOW Normal [facility] Comment on above: Result Comment: <100 mg/dl OPTIMAL 100 - 129 mg/dl NEAR OR ABOVE OPTIMAL 130 - 159 mg/dl BORDERLINE HIGH 160 - 189 mg/dl HIGH >190 mg/dl VERY HIGH Performed By: #### L IPID, LIVER, BMP #### [facility] [address] [address] [address] Didier Ty Triglyceride [Mass/Vol] 94 mg/dL Normal <=150 [facility] Comment on above: Performed By: #### L IPID, LIVER, BMP #### [facility] [address] [address] [address] Didier Ty VLDL CALC 18.8 mg/dL Normal [facility] Comment on above: Performed By: #### L IPID, LIVER, BMP #### [facility] [address] [address] [address] Didier Ty LIVER PROFILEon 02-12-2023 Albumin [Mass/Vol] 3.6 g/dL Normal 3.4-5.0 [facility] Comment on above: Performed By: #### L IPID, LIVER, BMP #### [facility] [address] [address] [address] Didier Ty Albumin/Globulin [Mass ratio] 0.8 {ratio} Normal [facility] Comment on above: Performed By: #### L IPID, LIVER, BMP #### [facility] [address] [address] [address] Didier Ty ALP [Catalytic activity/Vol] 60 U/L Normal 46-116 [facility] Comment on above: Performed By: #### L IPID, LIVER, BMP #### [facility] [address] [address] [address] Didier Ty ALT [Catalytic activity/Vol] 25 U/L Normal 14-59 [facility] Comment on above: Performed By: #### L IPID, LIVER, BMP #### [facility] [address] [address] [address] Didier Ty AST [Catalytic activity/Vol] 19 U/L Normal 15-37 [facility] Comment on above: Performed By: #### L IPID, LIVER, BMP #### [facility] [address] [place] [address] Dr. Didier Ty BILI, CONJUGATED 0.1 mg/dL Normal 0.0-0.2 [facility] Comment on above: Performed By: #### L IPID, LIVER, BMP #### [facility] [address] [place] [address] Dr. Didier Ty Bilirubin [Mass/Vol] 0.6 mg/dL Normal 0.2-1.0 [facility] Comment on above: Performed By: #### L IPID, LIVER, BMP #### [facility] [address] [place] [address] Dr. Didier Ty Globulin (S) [Mass/Vol] 4.3 g/dL Normal [facility] Comment on above: Performed By: #### L IPID, LIVER, BMP #### [facility] [address] [place] [address] Dr. Didier Ty Protein [Mass/Vol] 7.9 g/dL Normal 6.4-8.2 [facility] Comment on above: Performed By: #### L IPID, LIVER, BMP #### [facility] [address] [place] [address] Dr. Didier Ty PROF CHEM 8 (BAS METB)on Anion gap [Moles/Vol] 13.3 mmol/L Normal [facility] Comment on above: Performed By: #### L IPID, LIVER, BMP #### [facility] [address] [place] [address] Dr. Didier Ty Calcium [Mass/Vol] 9.1 mg/dL Normal 8.5-10.1 [facility] Comment on above: Performed By: #### L IPID, LIVER, BMP #### [facility] [address] [place] [address] Dr. Didier Ty Chloride [Moles/Vol] 105 mmol/L Normal 98-107 [facility] Comment on above: Performed By: #### L IPID, LIVER, BMP #### [facility] [address] [address] [address] Didier Ty CO2 [Moles/Vol] 26.6 mmol/L Normal 21.0-32.0 [facility] Comment on above: Performed By: #### L IPID, LIVER, BMP #### [facility] [address] [address] [address] Didier Ty Creatinine [Mass/Vol] 0.74 mg/dL Normal 0.55-1.02 [facility] Comment on above: Performed By: #### L IPID, LIVER, BMP #### [facility] [address] [address] [address] Didier Ty EGFR-AF NAURUAN >60 Normal >=60 [facility] Comment on above: Performed By: #### L IPID, LIVER, BMP #### [facility] [address] [address] [address] Didier Ty EGFR-NON AF NAURUAN >60 Normal >=60 [facility] Comment on above: Performed By: #### L IPID, LIVER, BMP #### [facility] [address] [address] [address] Didier Ty Glucose [Mass/Vol] 107 mg/dL Critically high 74-106 [facility] Comment on above: Performed By: #### L IPID, LIVER, BMP #### [facility] [address] [address] [address] Didier Ty Potassium [Moles/Vol] 3.9 mmol/L Normal 3.5-5.1 [facility] Comment on above: Performed By: #### L IPID, LIVER, BMP #### [facility] [address] [address] [address] Didier Ty Sodium [Moles/Vol] 141 mmol/L Normal 136-145 [facility] Comment on above: Performed By: #### L IPID, LIVER, BMP #### [facility] [address] [address] [address] Didier Ty Urea nitrogen [Mass/Vol] 15.0 mg/dL Normal 7.0-18.0 [facility] Comment on above: Performed By: #### L IPID, LIVER, BMP #### [facility] [address] [address] [address] Didier Ty Urea nitrogen/Creatinine [Mass ratio] 20.3 mg/mg Normal [facility] Comment on above: Performed By: #### L IPID, LIVER, BMP #### [facility] [address] [address] [address] Didier Ty XR humerus RT*on 10-11-2021 XR humerus RT* [facility] [place] [address] [place] [address] XRay Report Signed Patient: Meeta Funez MR#: [id number] 0 : 1945 Acct:[id number] Age/Sex: 76 / F ADM Date: 10/11/21 Loc: [facility] [place]: Type: [facility] Attending Dr: Jb Escudero MD Ordering Provider: [...] Isaias Gardner M.D.10/11/2021 12:47 PM Dictation Location: [place] [address] Transcribed By: [facility] 10/11/21 1247 Dictated By: Isaias Garnder DO 10/11/21 1240 Signed By: 10/11/21 1247 [facility] Vital Signs Date Time Vital Sign Value Performing Clinician Facility 12-15-2024 11:0500 Body height 165.1 cm Chetan Montero MD Work Phone: [facility] 12-15-2024 11:070500 Body mass index (BMI) [Ratio] 25.13 kg/m2 Chetan Montero MD Work Phone: [facility] 12-15-2024 11:070500 Body temperature 97.5 [degF] Chetan Montero MD Work Phone: [facility] 12-15-2024 11:07-0500 Body weight 68.49 kg Chetan Montero MD Work Phone: [facility] 12-15-2024 11:07-0500 Diastolic blood pressure 70 mm[Hg] Chetan Montero MD Work Phone: [facility] 12-15-2024 11:07-0500 Heart rate 72 /min Chetan Montero MD Work Phone: [facility] 12-15-2024 11:07-0500 Respiratory rate 20 /min Chetan Montero MD Work Phone: [facility] 12-15-2024 11:07-0500 SaO2% (BldA) [Mass fraction] 99 % Chetan Montero MD Work Phone: [facility] 12-15-2024 11:07-0500 Systolic blood pressure 138 mm[Hg] Chetan Montero MD Work Phone: [facility] 09-16-2024 09:28-0500 Body height 165.1 cm Chetan Montero MD Work Phone: [facility] 09-16-2024 09:28-0500 Body mass index (BMI) [Ratio] 25.29 kg/m2 Chetan Montero MD Work Phone: [facility] 09-16-2024 09:28-0500 Body temperature 97.5 [degF] Chetan Montero MD Work Phone: [facility] 09-16-2024 09:28-0500 Body weight 68.95 kg Chetan Montero MD Work Phone: [facility] 09-16-2024 09:28-0500 Diastolic blood pressure 60 mm[Hg] Chetan Montero MD Work Phone: [facility] 09-16-2024 09:28-0500 Heart rate 77 /min Chetan Montero MD Work Phone: [facility] 09-16-2024 09:28-0500 Respiratory rate 20 /min Chetan Montero MD Work Phone: [facility] 09-16-2024 09:28-0500 SaO2% (BldA) [Mass fraction] 98 % Chetan Montero MD Work Phone: [facility] 09-16-2024 09:28-0500 Systolic blood pressure 134 mm[Hg] Chetan Montero MD Work Phone: [facility] 10-11-2021 10:30-0500 Body height 165.1 cm Jb Olexa Other [facility] Other 10-11-2021 10:30-0500 Body mass index (BMI) [Ratio] 25.46 kg/m2 Jb Olexa Other [facility] Other 10-11-2021 10:30-0500 Body weight 69.4 kg Jb Olexa Other [facility] Other 10-04-2021 14:00-0500 Body height 165.1 cm Jb Olexa Other [facility] Other 10-04-2021 14:00-0500 Body mass index (BMI) [Ratio] 25.62 kg/m2 Jb Olexa Other [facility] Other 10-04-2021 14:00-0500 Body weight 69.85 kg Jb Olexa Other [facility] Other Encounters Encounter Date Encounter Type Care Provider Facility Start: 12-15-2024 End: 12-15-2024 Chad flowsoren Montero MD Work Phone: [facility] Start: 12-15-2024 End: 12-15-2024 Chad flowsoren Montero MD Work Phone: [facility] Start: 12-15-2024 End: 12-15-2024 Patient encounter procedure Chetan Montero MD Work Phone: [facility] Work Phone: Start: 12-15-2024 End: 12-15-2024 Postop follow up visit related to original px Chetan Montero MD Work Phone: [facility] Comment on above: Medicare annual well ness visit, subsequent (Primary Dx); Essential hypertension, benign (CMS/HCC) Start: 12-15-2024 End: 12-15-2024 ambulatory CHETAN MONTERO Not Available Start: 09-17-2024 End: 09-17-2024 [facility] Result Encounter Chetan Montero MD Work Phone: [facility] External Department Unsolicited Start: 09-17-2024 End: 09-17-2024 [facility] Result Encounter Chetan Montero MD Work Phone: [facility] External Department Unsolicited Start: 09-16-2024 End: 09-16-2024 Bamboo flowsheet Chetan Montero MD Work Phone: [facility] Start: 09-16-2024 End: 09-16-2024 Bamboo flowsheet Chetan Montero MD Work Phone: [facility] Start: 09-16-2024 End: 09-16-2024 Office outpatient visit 25 minutes Chetan Montero MD Work Phone: [facility] Comment on above: Essential hypertensi on, benign (CMS/HCC) (Primary Dx); Dyslipidemia (CMS/HCC); Pre-diabetes; Seasonal allergic rhinitis due to pollen; Encounter for long-term (current) use of medications; Abnormal TSH; Thyroid nodule (CMS/HCC) Start: 09-16-2024 End: 09-16-2024 ambulatory CHETAN MONTERO Not Available Start: 03-13-2024 End: 03-13-2024 ambulatory CHETAN MONTERO Not Available Start: 02-12-2023 End: 02-13-[address] CHETAN MONTERO Facility:[facility] Start: 12-14-[address] CHETAN MONTERO Facil ity:[facility] Start: 01-10-2022 End: 01-10-2022 ambulatory Jb Olexa Other [facility] Other Start: 01-10-2022 Office outpatient vi sit 15 minutes Jb Olexa [facility] Start: 11-15-2021 End: 11-15-2021 ambulatory Jb Olexa Other [facility] Other Start: 11-15-2021 Postop follow up vis it related to original px Jb Olexa [facility] Start: 10-11-2021 End: 10-11-2021 ambulatory Jb Olexa Other [facility] Other Start: 10-11-2021 Postop follow up vis it related to original px Jb Olexa [facility] Start: 10-04-2021 End: 10-04-2021 ambulatory Jb Olexa Other [facility] Other Start: 10-04-2021 FQ visit new patient Jb Dukesxa [facility] Procedures Date Procedure Procedure Detail Performing Clinician Start: 09-17-2024 ALL CBC WITH AUTO DIFF Chetan Montero MD Work Phone: Plan of Treatment Date Care Activity Detail Author Start: 06-18-2025 End: 06-18-2025 Patient encounter procedure 06/18/2025 10:00 AM EDT Office Visit [facility] [address] [place] [id number] Chetan Montero MD [address] [place] [id number] [facility] Start: 12-15-2024 End: 12-15-2024 Patient encounter procedure [facility] Comment on above: Arrived Start: 09-16-2024 End: 09-16-2025 Basic metabolic 1998 panel - Serum or Plasma Basic metabolic panel Lab Routine Essential hypertension, benign (CMS/HCC) Expected: 09/16/2024 (Approximate), Expires: 09/16/2025 [facility] Comment on above: Expected: 09/16/2024 (Approximate), Expires: 09/16/2025 Start: 09-16-2024 End: 09-16-2025 CBC W Auto Differential panel - Blood CBC and differential Lab Routine Encounter for long-term (current) use of medications Expected: 09/16/2024 (Approximate), Expires: 09/16/2025 [facility] Comment on above: Expected: 09/16/2024 (Approximate), Expires: 09/16/2025 Start: 09-16-2024 End: 09-16-2025 Hemoglobin A1c/Hemoglobin.total in Blood Hemoglobin A1c Lab Routine Pre-diabetes Expected: 09/16/2024 (Approximate), Expires: 09/16/2025 [facility] Work Phone: Comment on above: Expected: 09/16/2024 (Approximate), Expires: 09/16/2025 Start: 09-16-2024 End: 09-16-2025 Hepatic function 2000 panel - Serum or Plasma Hepatic function panel Lab Routine Encounter for long-term (current) use of medications Expected: 09/16/2024 (Approximate), Expires: 09/16/2025 [facility] Comment on above: Expected: 09/16/2024 (Approximate), Expires: 09/16/2025 Start: 09-16-2024 End: 09-16-2025 Lipid 1996 panel - Serum or Plasma Lipid panel Lab Routine Dyslipidemia (CMS/HCC) Expected: 09/16/2024 (Approximate), Expires: 09/16/2025 [facility] Comment on above: Expected: 09/16/2024 (Approximate), Expires: 09/16/2025 Start: 09-16-2024 End: 09-16-2025 Thyrotropin [Units/volume] in Serum or Plasma TSH Lab Routine Abnormal TSH Expected: 09/16/2024 (Approximate), Expires: 09/16/2025 [facility] Comment on above: Expected: 09/16/2024 (Approximate), Expires: 09/16/2025 Start: 09-16-2024 End: 09-16-2025 Thyroxine (T4) free [Mass/volume] in Serum or Plasma T4, free Lab Routine Abnormal TSH Expected: 09/16/2024 (Approximate), Expires: 09/16/2025 [facility] Comment on above: Expected: 09/16/2024 (Approximate), Expires: 09/16/2025 Start: 09-16-2024 End: 09-16-2025 US Thyroid gland US thyroid Imaging Routine Thyroid nodule (CMS/HCC) Expected: 09/16/2024, Expires: 09/16/2025 [facility] Comment on above: Expected: 09/16/2024 , Expires: 09/16/2025 Start: 09-16-2024 End: 09-16-2024 Patient encounter procedure 09/16/2024 9:15 AM EST Office Visit [facility] [address] [place] [id number] Chetan Montero MD [address] [place] [address] Arrived [facility] Comment on above: Arrived Start: 06-15-2024 Influenza vaccination Influenza Vacc ine (#1) [facility] Start: 2008 Pneumococcal Vaccine : 65+ Years (1 of 1 - PCV) Pneumococcal Vaccine: 65+ Years (1 of 1 - PCV) [facility] Start: 1945 Medicare Annual Wellness (AWV) Medicare Annual Wellness (AWV) [facility] Immunizations Immunization Date Immunization Notes Care Provider Fa cility 07-29-2024 influenza virus vacc ine, unspecified formulation Chetan Montero MD Work Phone: [facility] Healthcare Payers Date Payer Category Payer Medicare (Managed Care) [id number] 2022 Medicare [id number] 1959 Medicare [id number] 1959 Self-pay 1945 Unknown [id number] [id number] 1943 Unknown [id number] 2.16.84 [id number] 1943 Unknown [id number] 2.16.84 [id number] 1943 Unknown [id number] 2.16.84 [id number] 1943 Unknown [id number] 2.16.84 [id number] Medicare [id number] 2.1 [id number] Unknown [id number] 2. [id number] Social History Date Type Detail Facility Start: 03-13-2024 End: 12-15-2024 Sex Assigned At [email or web address] Other Start: 03-13-2024 Tobacco smoking status [facility] Never smoked tobacco [facility] Start: 03-13-2024 Tobacco use and exposure Smokeless tobacco non-user [facility] Start: 03-13-2024 End: 12-15-2024 History of Social function [facility] Start: 1945 Sex assigned at Not on file [facility] History of Present illness Narrative 12-15-2024 Chetan Montero MD - 12/15/2024 11:41 AM Adriano Montero MD - 12/15/2024 11:40 AM Adriano Montero MD - 12/15/2024 11:00 AM EST Note Date & Type Note Facility 12-15-2024 History of Presen t illness Narrative Associated Problem(s): Medicare annual wellness visit, subsequent Reviewed labs. Discussed proper diet and regular aerobic exercise. Need aerobic exercise 5-6 days a week for 30 minutes at a time. Smaller portions and limit total calories. Tetanus every 10 years. Advised not to smoke. Associated Problem(s): Essential hypertension, benign (CMS/HCC) BP controlled and monitor PRN. Images from the original note were not included. Subjective Patient ID: Metea Funez is a 79 y.o. female who presents for Medicare Annual Wellness Visit Subsequent (wellness). Presents for medicare annual wellness visit. Weight unchanged over the past year. Active and exercises several days a week. Walks on treadmill almost daily. Tries to watch diet and eat healthy. Increased fruits and vegetables. Smaller portions and limits snacking. Tries to limit total daily calories. Reviewed labs. Review of Systems Respiratory: Negative for cough, [...] There is no guarding or rebound. Musculoskeletal: General: No swelling or tenderness. Cervical back: Neck supple. Right lower leg: No edema. Left lower leg: No edema. Skin: Findings: No erythema or rash. Neurological: General: No focal deficit present. Mental Status: She is alert and oriented to person, place, and time. Cranial Nerves: No cranial nerve deficit. Motor: No weakness. Gait: Gait normal. Assessment/Plan Problem List Items Addressed This Visit Essential hypertension, benign (CMS/HCC) BP controlled and monitor PRN. Medicare annual wellness visit, subsequent - Primary Reviewed labs. Discussed proper diet and regular aerobic exercise. Need aerobic exercise 5-6 days a week for 30 minutes at a time. Smaller portions and limit total calories. Tetanus every 10 years. Advised not to smoke. documented in this encounter [facility] History of Present illness Narrative 09-16-2024 Chetan Montero MD - 09/16/2024 10:03 AM Adriano [...] Hepatic function panel documented in this encounter [facility] Evaluation note 01-10-2022 Note Date & Type Note Facility 01-10-2022 Evaluation note Encounter Date Diagnosis Assessment Notes Dec, Other fracture of shaft of right humerus, subsequent encounter for fracture with routine healing (ICD-10 - S42.391D) Radiographs reviewed with patient. She is progressing well from injury. 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 Discussed that she will have some degree of stiffness group home, but there is room for improvement with regular stretching. Progress activity as tolerated. Call with questions/concer ns. [employer] Other Evaluation note 11-15-2021 Note Date & Type Note Facility 11-15-2021 Evaluation note Encounter Date Diagnosis Assessment Notes Nov, Other fracture of shaft of right humerus, subsequent encounter for fracture with routine healing (ICD-10 - S42.391D) Radiographs reviewed with patient as healing fracture. Instructed on progression of motion and strengthening exercises including table and wall walks, these were demonstrated. Formal therapy order provided. [employer] Other Evaluation note 10-11-2021 Note Date & Type Note Facility 10-11-2021 Evaluation note Encounter Date Diagnosis Assessment Notes Sep, Other fracture of shaft of right humerus, subsequent encounter for fracture with routine healing (ICD-10 - S42.391D) Patient is progressing well from this injury. We discussed the importance of continuing to work on range of motion [employer] Other Evaluation note 10-04-2021 Note Date & [...] FIXATION IF ALINGMENT WORSENS OR PAIN UNACCEPTABLE. [employer] Other Evaluation note Note Date & Type [...] goiter documented in this encounter [facility] Evaluation note Note Date & Type Note [...] TSH Thyroid nodule (CMS/HCC) Nontoxic uninodular goiter Medicare annual wellness visit, subsequent- Primary Essential hypertension, benign (CMS/HCC) Essential hypertension, benign documented in this encounter [facility] History general Narrative - Reported Note Date & Type Note Facility History general Narrative - Reported Type Medical History HTN (hypertension) Medical History Breast cancer Surgical History cholecystectomy Surgical History biopsy Hospitalization History left side weakness [employer] Other Summary Purpose Family History No Family History Records FoundNo Family History Records FoundNo Family History Records Found Advance Directives No Advanced Directives Records FoundNo Advanced Directives Records FoundNo Advanced Directives Records Found Additional Source Comments INFORMATION SOURCE (unrecogn ized section and content) DATE CREATED AUTHOR 10/19/2021 [facility] DATE CREATED AUTHOR AUTHOR'S ORGANIZ ATION 02/17/2023 [facility] DATE CREATED AUTHOR AUTHOR'S ORGANIZ ATION 12/16/2024 [facility] EPIC REASON FOR VISIT (unrecogniz ed section and content) Reason Comments Follow-up 6 m Reason Comments Medicare Annual Wellness Visit Subsequen t wellness Care Teams (unrecognized sec tion and content) 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 03/13/24 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 03/13/24 FOR RECORDS PERTAINING TO PATIENTS WHO [...] BE BASED ON THE PRIMARY CLINICAL RECORDS. [employer] [facility]. provides no warranty or guarantee of the accuracy or completeness of information in this document.
== END 2025-04-01 10:46 | disposition home or self-care (01) ==
PROVIDERS: PCP Family Medicine; Visit Provider Family Medicine
DX: Z12.31 Encounter for screening mammogram for malignant neoplasm of breast (principal); Z80.3 Family history of malignant neoplasm of breast; Z85.3 Personal history of malignant neoplasm of breast
CPT/HCPCS: 77063; 77067